=== PATIENT | female | born 2000 ===

== ENCOUNTER 2024-08-03 12:25 | Inpatient (IN) | payer OTHER ==
[2024-08-03] MEDS ORDERED: Ondansetron 4 MG/2 ML SDV IVPUSH PRN (12:36)
[2024-08-03] MEDS ORDERED: Sodium Chloride 0.9% 10 ML Syringe FLUSH PRN (12:36)
[2024-08-03] MEDS ORDERED: Lidocaine 1% 50 ML MDV INJECT PRN (12:36)
[2024-08-03] MEDS ORDERED: Nalbuphine 10 MG/1 ML Vial IVPUSH PRN (12:36)
[2024-08-03] MEDS: Oxytocin/0.9 % Sodium Chloride 30 UNIT/500 ML BAG IV SCH (12:40)
[2024-08-03] MEDS ORDERED: Lactated Ringers 1,000 ML IV SCH (12:45)
[2024-08-03 13:43] LABS: BASOPHILS PERCENT AUTO 0.1 % (0.0-1.0); EOSINOPHILS PERCENT AUTO 0.1 % (0.0-6.0); HEMATOCRIT 31.2 % (37.0-47.0); HEMOGLOBIN 10.1 gm/dl (12.0-16.0); IMMATURE GRAN ABSOLUTE AUTO 0.04 K/mm3 (0.00-0.05); IMMATURE GRAN PERCENT AUTO 0.4 % (0.0-0.4); LYMPHOCYTES ABSOLUTE AUTO 0.6 K/mm3 (1.0-4.8); LYMPHOCYTES PERCENT AUTO 5.8 % (24.0-44.0); MEAN CORPUSCULAR HEMOGLOBIN 26.3 pg (28.0-32.0); MEAN CORPUSCULAR HGB CONC 32.4 g/dl (32.0-36.0); MEAN CORPUSCULAR VOLUME 81.3 fl (83.0-99.0); MEAN PLATELET VOLUME 9.3 fl (9.4-12.3); MONOCYTES ABSOLUTE AUTO 0.4 K/mm3 (0.0-0.8); MONOCYTES PERCENT AUTO 3.8 % (0.0-8.0); NEUTROPHILS ABSOLUTE AUTO 9.8 K/mm3 (1.8-7.7); NEUTROPHILS PERCENT AUTO 89.8 % (41.0-71.0); PLATELET COUNT,PLT 301 K/mm3 (150-400); RED BLOOD CELL COUNT 3.84 M/mm3 (4.10-5.30); WHITE BLOOD CELL COUNT,WBC 10.93 K/mm3 (3.9-11.3)
[2024-08-03] MEDS ORDERED: Docusate Sodium 100 MG Cap PO PRN (13:45)
[2024-08-03] MEDS ORDERED: Sennosides 8.6 MG Tab PO PRN (13:45)
[2024-08-03] MEDS ORDERED: Acetaminophen 325 MG Tab PO PRN (13:45)
[2024-08-03] MEDS ORDERED: Magnesium Hydroxide 400 MG/5 ML Susp 30 ML Cup PO PRN (13:45)
[2024-08-03] MEDS: Ibuprofen 800 MG Tab PO SCH ×2 (15:32→21:30)
[2024-08-03] MEDS: Witch Hazel Medicated Pads 40/Jar TOP PRN (15:43)
[2024-08-03] MEDS: Benzocaine/Menthol 20%-0.5% Spray 78 GM Cannister TOP PRN (15:44)
[2024-08-03] MEDS: QUEtiapine 100 MG Tab PO SCH (20:13)
[2024-08-03] MEDS: Prazosin 1 MG Cap PO SCH (20:13)
[2024-08-03] MEDS: hydrOXYzine HCl 25 MG Tab PO SCH (20:13)
[2024-08-03] MEDS: Venlafaxine 37.5 MG Tab PO SCH (20:13)
[2024-08-04] MEDS: Sodium Chloride 0.9% 10 ML Syringe FLUSH SCH (05:11)
[2024-08-04] MEDS ORDERED: Methadone 5 MG Tab PO SCH (09:00)
[2024-08-04] MEDS: Famotidine 20 MG Tab PO SCH (09:52)
[2024-08-04] MEDS: Prenatal Multivitamin with Calcium/Folic Acid/Iron Tab PO SCH (09:53)
== END 2024-08-04 10:30 | disposition home or self-care (01) | DRG 806 ==
LOC: JD.OBCHECK 12:25 → JD.OB 12:26 → JD.OBCHECK 12:35 → JD.OB 12:36 → OBSVTOIN 12:39 → JD.OB 12:40
PROVIDERS: ADMIT Obstetrics & Gynecology; ATTEND Obstetrics & Gynecology
PROC: 10E0XZZ Delivery of Products of Conception, External Approach (ICD-10-PCS; principal; 2024-08-03)
DX: O60.13X0 Preterm labor second trimester with preterm delivery third trimester, not applicable or unspecified (principal); F11.20 Opioid dependence, uncomplicated; Z37.0 Single live birth; O99.324 Drug use complicating childbirth; Z3A.35 35 weeks gestation of pregnancy; Z79.899 Other long term (current) drug therapy
CPT/HCPCS: 36415; 59025; 59409; 85025; 86592; 86850; 86900; 86901; A9270-GY; J7999